=== PATIENT | male | born 1950 | race African-American/Black ===

== ENCOUNTER 2022-01-14 14:43 | Emergency (ER) | payer OTHER ==
[~2022-01-14] VITALS: Ht 172.7 cm; Wt 98.0 kg
[2022-01-14 15:03] VITALS: BP_SYST 143
--- NOTE | 2022-01-14 15:07 | NUR ---
PT TRIAGED AND PLACED IN ED LOBBY FOR AVAILABLE BED IN MAIN ED
--- NOTE | 2022-01-14 15:10 | NUR ---
PT BIB FROM HOME, REPORTS RAISED RASH ON LEGS, ARMS, AND BACK X 7 WEEKS. HAS SEEN MD X3 AND GIVEN HYDROCORTISONE CREAM, HALOBETASOL PROPIANATE AND OTC ITCH CREAMS WITHOUT RESOLVE. ITCHING, SKIN DISCOLORATION. PT IS AMBULATORY, AAOX4, VSS
--- NOTE | 2022-01-14 16:05 | NUR ---
ER DR. WOLFE EXAMINING PT IN TRIAGE
[2022-01-14] MEDS ORDERED: CHLO118L TP (16:14)
[2022-01-14] MEDS ORDERED: SULF1TAB48 PO (16:14)
[2022-01-14 16:25] VITALS: BP_SYST 143
--- NOTE | 2022-01-14 16:26 | NUR ---
Patient given written and verbal discharge instructions and verbalizes understanding. ER MD discussed with patient the results and treatment provided. Patient in stable condition. ID arm band removed. Rx of HIBICLENS AND BACTRIM DS TAB given. Patient educated on pain management and to follow up with PMD. Pain Scale 0/10. Opportunity for questions provided and answered. Medication side effect fact sheet provided.
== END 2022-01-14 16:26 | disposition home or self-care (01) ==
LOC: SED 14:43
DX: L73.8 Other specified follicular disorders (principal); Z79.899 Other long term (current) drug therapy
CPT/HCPCS: 99283